=== PATIENT | male | born 1965 | race African-American/Black ===

== ENCOUNTER 2020-02-21 16:02 | Emergency (ER) | payer OTHER ==
--- NOTE | 2020-02-21 17:07 | RAD ---
CHEST ONE VIEW: History: Cough Comparison: None FINDINGS: Heart size upper limits of normal. No pneumothorax. No effusion. Old right sided rib fractures. No co nfluent airspace consolidation. IMPRESSION: 1. Mild cardiomegaly. No acute intrathoracic abnormality. 2. Right rotator cuff insufficiency. POS: HOME
[2020-02-22 18:38] LABS: SARS-CoV-2 MS2 Positive; SARS-CoV-2 N Gene Positive; SARS-CoV-2 S Gene Positive; SARS-CoV-2 by NAA DETECTED (NotDetected); SARS-CoV-2 orf1ab Positive
== END 2020-02-21 17:07 ==
LOC: NAV ERS 16:02
DX: U07.1 COVID-19 (principal); J20.8 Acute bronchitis due to other specified organisms; I12.9 Hypertensive chronic kidney disease with stage 1 through stage 4 chronic kidney disease, or unspecified chronic kidney disease; N18.9 Chronic kidney disease, unspecified; M19.90 Unspecified osteoarthritis, unspecified site; Z79.899 Other long term (current) drug therapy
CPT/HCPCS: 71045; 87635; U0003